=== PATIENT | female | born 2005 | race Caucasian/White ===

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

== ENCOUNTER 2023-01-17 01:12 | Day surgery (SDC) | payer MEDICAID, SELFPAY ==
[2023-01-14 14:56] VITALS: BMI 25.4
--- NOTE | 2023-01-17 07:17 | PM.HPGS ---
History of Present Illness History of Present Illness Consent: Risks, benefits, and alternatives have been discussed and questions answered. Patient agrees to proceed with procedure. Chief complaint: RLQP, LLQP, gastroenteritis colitis Narrative: Mahogany Enriquez is a 17 year old female Referred for investigation of persistent diarrhea. This started after cholecystectomy. They will have several stools per day, generally 20 minutes after meal with a great deal of urgency.. Also the patient is experiencing bilateral lower abdominal pain. Review of Systems Review of Systems: All systems reviewed & are unremarkable except as noted in HPI and below PMFSH Past Medical History Medical History (Updated 12/16/22 @ 16:02 by Yelitza Ty, MARIANA) Abnormal stools ADHD Anemia Chronic bilateral lower abdominal pain Chronic diarrhea Depression Generalized anxiety disorder Kidney stone Mucus in stool Urinary incontinence Surgical History Surgical History Hx laparoscopic cholecystectomy 03/22/22 Family History Family History Mother Depression Social History Social History Smoking status: Never smoker Tobacco type: e-cigarettes/vaping Additional smoking assessment comments: VAPES OFF AND ON FOR 4 YRS Alcohol intake: never Substance use: current Substance use type: marijuana Other substance usage details: DAILY/ SMOKES Lack of Transportation: YES Lack of Food: Never True Current Housing: I Have Housing Concerned About Future Housing: Decline to Answer Difficulty Paying Gas/Electric Bills: No Difficulty Paying for Meds: Decline to Answer Currently Unemployed: No Education: High School Diploma/GED Difficulty w/ Childcare or Family Care: No Living arrangements: with family Occupation/Education: unemployed Gender identity (if verbalized by the patient): Male Spiritual care concerns: No Meds Home Medications and Allergies Home Medications Medication Instructions Recorded Confirmed Type dextroamphetamine-amphetamine 10 5 mg PO BID #30 tabs 10/01/22 01/14/23 Rx mg tablet (Adderall) hyoscyamine sulfate 0.125 mg 0.125 mg PO .every 6 hours PRN 12/16/22 01/14/23 Rx tablet (Levsin) abdominal pain #120 tabs colestipol 1 gram tablet 1 g PO DAILY PRN CRAMPING 01/14/23 01/14/23 History Allergies Allergy/AdvReac Type Severity Reaction Status Date / Time No Known Allergies Allergy Mild Verified 01/14/23 14:58 Exam Const: General: alert Orientation/consciousness: patient oriented x3 Resp: Auscultation: clear to auscultation bilaterally Cardio: Rhythm: regular rhythm GI: GI Palp: Yes Soft to palpation and No Tenderness to palpation present (GI) Neuro: General: patient oriented x3 Assessment and Plan Assessment and plan (1) Chronic diarrhea: Code(s): K52.9 - Noninfective gastroenteritis and colitis, unspecified Status: Acute Assessment and Plan: Colonoscopy with possible biopsy or polypectomy or cautery or injection of substances.
--- NOTE | 2023-01-17 08:10 | WPDANESEPPF ---
Anes - Initial Pre Proc Eval Procedure: Operation Date: 01/17/23 12:30 Proposed Procedures p Colonoscopy - Robb Membreno MD Date/Time: 01/17/23 08:10 Surgeon: Robb Membreno MD Pre Op Diagnosis: RLQP, LLQP, gastroenteritis colitis Patient Data Age: 17 Gender: F Height: 1.65 m Weight: 69.5 kg Allergies Allergy/AdvReac Type Severity Reaction Status Date / Time No Known Allergies Allergy Mild Verified 01/17/23 11:23 Home Medications Medication Instructions Recorded Confirmed Type dextroamphetamine-amphetamine 10 5 mg PO BID #30 tabs 10/01/22 01/14/23 Rx mg tablet (Adderall) hyoscyamine sulfate 0.125 mg 0.125 mg PO .every 6 hours PRN 12/16/22 01/14/23 Rx tablet (Levsin) abdominal pain #120 tabs colestipol 1 gram tablet 1 g PO DAILY PRN CRAMPING 01/14/23 01/14/23 History Patient hx anesthesia problems: none Family hx anesthesia problems: none Results Review: All pre-operative results and documents have been reviewed as part of the pre-operative evaluation. [facility] Past Medical History Medical History (Updated 12/16/22 @ 16:02 by Yelitza Ty APRN) Abnormal stools ADHD Anemia Chronic bilateral lower abdominal pain Chronic diarrhea Depression Generalized anxiety disorder Kidney stone Mucus in stool Urinary incontinence Surgical History Surgical History Hx laparoscopic cholecystectomy 03/22/22 Family History Family History Mother Depression Social History Social History Smoking status: Never smoker Tobacco type: e-cigarettes/vaping Additional smoking assessment comments: VAPES OFF AND ON FOR 4 YRS Alcohol intake: never Substance use: current Substance use type: marijuana Other substance usage details: DAILY/ SMOKES Lack of Transportation: YES Lack of Food: Never True Current Housing: I Have Housing Concerned About Future Housing: Decline to Answer Difficulty Paying Gas/Electric Bills: No Difficulty Paying for Meds: Decline to Answer Currently Unemployed: No Education: High School Diploma/GED Difficulty w/ Childcare or Family Care: No Living arrangements: with family Occupation/Education: unemployed Gender identity (if verbalized by the patient): Male Spiritual care concerns: No Anes - Eval Final PreProcedure Day of Procedure 01/17/23 08:10 Patient weight: normal Heart: regular rate and rhythm Lungs: clear to auscultation Airway: Mallampati scale class II Neurological: alert and oriented Last oral intake: >/= 8 hours ASA classification: II Emergent: no Anesthetic plan: proceed Anesthesia type and monitoring: general GIVS and standard monitoring Results Review: All pre-operative results and documents have been reviewed as part of the pre-operative evaluation. Informed Consent: The patient's anesthetic plan and its attendant risks and benefits were discussed with the patient/family/POA. Questions were solicited and answers provided to the satisfaction of the patient/family/POA.
[2023-01-17 11:25] VITALS: BP 117/68; PULSE 66; RESP 17; TEMP 36.7; O2SAT 99
[2023-01-17] MEDS: LACTATED RINGERS 1,000 ML 150 ML IV CONT (11:37)
[2023-01-17 12:53] VITALS: BP 92/54; PULSE 47; RESP 16; O2SAT 99
[2023-01-17 13:03] VITALS: BP 106/59; PULSE 50; RESP 16; O2SAT 99
[2023-01-17 13:13] VITALS: BP 108/60; PULSE 52; RESP 16; O2SAT 99
== END 2023-01-17 13:15 | disposition home or self-care (01) ==
PROVIDERS: PCP Family Medicine; Visit Provider Internal Medicine Gastroenterology
PROC: 0DJD8ZZ Inspection of Lower Intestinal Tract, Via Natural or Artificial Opening Endoscopic (ICD-10-PCS; CPT 45378; principal; 2023-01-17 12:30)
DX: R19.7 Diarrhea, unspecified (principal); R10.31 Right lower quadrant pain; R10.32 Left lower quadrant pain; F90.9 Attention-deficit hyperactivity disorder, unspecified type; F17.290 Nicotine dependence, other tobacco product, uncomplicated; F12.90 Cannabis use, unspecified, uncomplicated
CPT/HCPCS: 45380; 88305; J2704; J7120